=== PATIENT | female | born 1935 | race Caucasian/White ===

== ENCOUNTER 2021-01-26 14:44 | Inpatient (IN) | payer MEDICARE ==
[2021-01-26 15:26] LABS: #Basophils 0.1 thou/uL (0.0-0.2); #Eosinphils 0.1 thou/uL (0.0-0.7); #Lymphocytes 3.3 thou/uL (1.20-3.40); #Monocytes 1.6 thou/uL (0.11-0.59); #Neutrophils 10.3 thou/uL (1.40-6.50); %Basophils 0.6 % (0.0-1.0); %Eosinophils 0.3 % (0.0-10.0); %Lymphocytes 21.6 % (21.0-51.0); %Monocytes 10.4 % (0.0-10.0); %Neutrophils 67.1 % (42.0-75.0); Hemoglobin 13.6 g/dL (12.0-16.0); Mean Corpuscular Hemoglobin 35.3 pg (27.0-31.0); Mean Platelet Volume 9.2 fL (7.4-10.4); Platelet Count 199 thou/uL (130-400); RBC Distribution Width 12.1 % (11.5-14.5); Red Blood Cell (RBC) Count 3.84 mill/uL (4.20-5.40); White Blood Cell (WBC) Count 15.4 thou/uL (4.8-10.8)
[2021-01-26 15:45] LABS: ALT (SGPT) 9 U/L (8-55); AST (SGOT) 12 U/L (5-34); Albumin 3.5 g/dL (3.4-4.8); Alkaline Phosphatase 83 U/L (40-110); Anion Gap 15 mmol/L (10-20); BUN (Urea Nitrogen) 27 mg/dL (9.8-20.1); Bilirubin, Total 1.6 mg/dL (0.2-1.2); Calc. Creatinine Clearance 0 mL/min (70-130); Calcium 10.2 mg/dL (7.8-10.44); Carbon Dioxide 23 mmol/L (23-31); Chloride 101 mmol/L (98-107); Globulin 3.7 g/dL (2.4-3.5); Glucose 214 mg/dL (83-110); Potassium 4.5 mmol/L (3.5-5.1); Protein, Total 7.2 g/dL (5.8-8.1); Sodium 134 mmol/L (136-145)
[2021-01-26] MEDS ORDERED: HumaLOG 300 UNITS/3 ML VIAL SC PRN (17:49)
[2021-01-26] MEDS ORDERED: Dextrose 50% Abboject 50 ML SYRINGE SLOW IVP PRN (17:49)
[2021-01-26] MEDS ORDERED: Bisacodyl 10 MG SUPP PR PRN (17:49)
[2021-01-26] MEDS ORDERED: Guaifenesin DM 100-10/5 ML UDCUP PO PRN (17:49)
[2021-01-26] MEDS ORDERED: Senokot S 8.6-50 MG TAB PO PRN (17:49)
[2021-01-26] MEDS ORDERED: Dextrose 5% in Water 1,000 ML IV PRN (17:49)
[2021-01-26] MEDS ORDERED: Sodium Chloride 0.9% 1,000 ML IV SCH (17:49)
[2021-01-26] MEDS ORDERED: Calcium Carbonate 500 MG ChewTAB PO PRN (17:49)
[2021-01-26] MEDS ORDERED: Ondansetron PF 4 MG/2 ML Vial IVP PRN (17:49)
[2021-01-26] MEDS ORDERED: Acetaminophen 325 MG TAB PO PRN (17:49)
[2021-01-26] MEDS ORDERED: Morphine 4 MG/ML VIAL SLOW IVP PRN (18:05)
[2021-01-26 20:03] VITALS: BMI 27.4
[2021-01-26] MEDS ORDERED: Enoxaparin Sodium 80 MG/0.8 ML SYRINGE SC SCH (20:15)
[2021-01-26] MEDS ORDERED: Ketorolac Tromethamine 30 MG/ML VIAL IVP SCH (20:30)
[2021-01-26] MEDS ORDERED: Transdermal Patch Removal TOP SCH (21:00)
[2021-01-26 21:29] LABS: Troponin I 0.055 ng/mL (< 0.028)
[2021-01-26] MEDS: Gabapentin 100 MG CAP PO SCH (21:46)
[2021-01-26] MEDS: metFORMIN 500 MG TAB PO SCH (21:47)
[2021-01-26] MEDS: Atorvastatin Calcium 20 MG TAB PO SCH (21:47)
[2021-01-26] MEDS: Nitroglycerin 2% Ointment 1 INCH/1 GM Packet TOP SCH (21:48)
[2021-01-27 00:05] LABS: Troponin I 0.063 ng/mL (< 0.028)
[2021-01-27 02:21] LABS: SARS-CoV-2 NAA Rapid Test Not Detected (NotDetected)
[2021-01-27] MEDS: Nitroglycerin 2% Ointment 1 INCH/1 GM Packet TOP SCH ×2 (05:09→13:40)
[2021-01-27 05:44] LABS: #Basophils 0.1 thou/uL (0.0-0.2); #Eosinphils 0.2 thou/uL (0.0-0.7); #Lymphocytes 4.4 thou/uL (1.20-3.40); #Monocytes 1.5 thou/uL (0.11-0.59); #Neutrophils 7.7 thou/uL (1.40-6.50); %Basophils 0.4 % (0.0-1.0); %Eosinophils 1.4 % (0.0-10.0); %Lymphocytes 31.9 % (21.0-51.0); %Monocytes 10.6 % (0.0-10.0); %Neutrophils 55.7 % (42.0-75.0); Mean Corpuscular HGB CONC 33.8 g/dL (32.0-36.0); Mean Corpuscular Hemoglobin 34.1 pg (27.0-31.0); Mean Platelet Volume 9.7 fL (7.4-10.4); Platelet Count 183 thou/uL (130-400); White Blood Cell (WBC) Count 13.9 thou/uL (4.8-10.8)
[2021-01-27 05:58] LABS: ALT (SGPT) 8 U/L (8-55); AST (SGOT) 11 U/L (5-34); Alkaline Phosphatase 71 U/L (40-110); Anion Gap 13 mmol/L (10-20); BUN (Urea Nitrogen) 31 mg/dL (9.8-20.1); Bilirubin, Total 0.8 mg/dL (0.2-1.2); Calc. Creatinine Clearance 39 mL/min (70-130); Calcium 9.2 mg/dL (7.8-10.44); Carbon Dioxide 22 mmol/L (23-31); Cardiac Risk 5.6 (Less than 4.5); Chloride 105 mmol/L (98-107); Cholesterol 150 mg/dl (< 200 Desired); Globulin 3.3 g/dL (2.4-3.5); Glucose 162 mg/dL (83-110); HDL Cholesterol 27 mg/dL (>60 Neg Risk); LDL Cholesterol, Calculated 72 mg/dL; Potassium 3.7 mmol/L (3.5-5.1); Protein, Total 6.3 g/dL (5.8-8.1); Sodium 136 mmol/L (136-145); Triglycerides 255 mg/dL (Less than 150)
[2021-01-27] MEDS ORDERED: Lidocaine 5% Patch TD SCH ×2 (09:00)
[2021-01-27] MEDS ORDERED: Amlodipine 5 MG TAB PO SCH (09:00)
[2021-01-27] MEDS: Enoxaparin Sodium 40 MG/0.4 ML SYRINGE SC SCH (09:49)
[2021-01-27] MEDS: Aspirin Chewable 81 MG TAB PO SCH (09:49)
[2021-01-27] MEDS: Gabapentin 100 MG CAP PO SCH ×2 (09:50→14:54)
[2021-01-27] MEDS: metFORMIN 500 MG TAB PO SCH ×2 (09:50→20:52)
[2021-01-27] MEDS: Carvedilol 6.25 MG TAB PO SCH ×2 (09:50→16:25)
[2021-01-27 20:31] LABS: Bacteria/HPF None Seen HPF (None Seen); Bilirubin Negative (Negative); Blood, Urine Negative (Negative); Clarity Clear (Clear); Glucose, Urine (Dipstick) 200 mg/dL (Negative); Ketone, Urine Negative (Negative); Leukocyte Negative Leu/uL (Negative); Nitrite Negative (Negative); Protein, Urine (Dipstick) 70 mg/dL (Neg-Trace); RBC/HPF 0-3 HPF (0-3); Specific Gravity, Urine 1.024 (1.002-1.036); Squamous Epithelial None Seen HPF (0-3); Urobilinogen Normal mg/dL (Less than 2); WBC/HPF 0-3 HPF (0-3)
[2021-01-27] MEDS: Atorvastatin Calcium 20 MG TAB PO SCH (20:53)
[2021-01-28] MEDS: HumaLOG 300 UNITS/3 ML VIAL SC PRN (06:18)
[2021-01-28] MEDS ORDERED: Losartan 25 MG TAB PO SCH (09:00)
[2021-01-28] MEDS: Carvedilol 6.25 MG TAB PO SCH ×5 (11:44→22:15)
[2021-01-28] MEDS: metFORMIN 500 MG TAB PO SCH ×3 (11:44→22:16)
[2021-01-28] MEDS: Enoxaparin Sodium 40 MG/0.4 ML SYRINGE SC SCH (11:44)
[2021-01-28] MEDS: Aspirin Chewable 81 MG TAB PO SCH (11:44)
[2021-01-28 13:12] LABS: #Monocytes 1.8 thou/uL (0.11-0.59); #Neutrophils 13.1 thou/uL (1.40-6.50); %Basophils 0.2 % (0.0-1.0); %Eosinophils 0.1 % (0.0-10.0); %Lymphocytes 16.7 % (21.0-51.0); %Monocytes 10.1 % (0.0-10.0); %Neutrophils 72.9 % (42.0-75.0); Hemoglobin 12.7 g/dL (12.0-16.0); Mean Corpuscular HGB CONC 33.9 g/dL (32.0-36.0); Mean Platelet Volume 9.6 fL (7.4-10.4); Platelet Count 212 thou/uL (130-400); RBC Distribution Width 12.1 % (11.5-14.5); Red Blood Cell (RBC) Count 3.73 mill/uL (4.20-5.40)
[2021-01-28 13:35] LABS: ALT (SGPT) Less than 7 U/L (8-55); AST (SGOT) 11 U/L (5-34); Albumin 3.2 g/dL (3.4-4.8); Alkaline Phosphatase 72 U/L (40-110); Anion Gap 15 mmol/L (10-20); BUN (Urea Nitrogen) 17 mg/dL (9.8-20.1); Bilirubin, Total 1.8 mg/dL (0.2-1.2); Calc. Creatinine Clearance 50 mL/min (70-130); Calcium 8.8 mg/dL (7.8-10.44); Carbon Dioxide 21 mmol/L (23-31); Chloride 101 mmol/L (98-107); Globulin 3.5 g/dL (2.4-3.5); Glucose 187 mg/dL (83-110); Protein, Total 6.7 g/dL (5.8-8.1); Sodium 133 mmol/L (136-145)
[2021-01-28] MEDS: Sodium Chloride 0.9% 1,000 ML IV SCH (15:31)
[2021-01-28] MEDS: Gabapentin 100 MG CAP PO SCH (22:15)
[2021-01-28] MEDS: Atorvastatin Calcium 20 MG TAB PO SCH (22:15)
[2021-01-29] MEDS: Carvedilol 6.25 MG TAB PO SCH ×2 (12:36→20:11)
[2021-01-29] MEDS: Aspirin Chewable 81 MG TAB PO SCH (12:36)
[2021-01-29] MEDS: metFORMIN 500 MG TAB PO SCH ×2 (12:37→20:12)
[2021-01-29] MEDS: Enoxaparin Sodium 40 MG/0.4 ML SYRINGE SC SCH (12:37)
[2021-01-29] MEDS: Gabapentin 100 MG CAP PO SCH (12:41)
[2021-01-29] MEDS: Sodium Chloride 0.9% 1,000 ML IV SCH (13:52)
[2021-01-29] MEDS ORDERED: Losartan 25 MG TAB PO SCH (14:15)
[2021-01-29] MEDS: Atorvastatin Calcium 20 MG TAB PO SCH (20:12)
[2021-01-30] MEDS: HumaLOG 300 UNITS/3 ML VIAL SC PRN (06:19)
[2021-01-30] MEDS ORDERED: Losartan 25 MG TAB PO SCH (09:00)
[2021-01-30] MEDS: Aspirin Chewable 81 MG TAB PO SCH (09:49)
[2021-01-30] MEDS: Enoxaparin Sodium 40 MG/0.4 ML SYRINGE SC SCH (09:49)
[2021-01-30] MEDS: Carvedilol 6.25 MG TAB PO SCH (09:50)
[2021-01-30] MEDS: metFORMIN 500 MG TAB PO SCH (09:50)
[2021-01-30 10:20] LABS: #Basophils 0.1 thou/uL (0.0-0.2); #Eosinphils 0.1 thou/uL (0.0-0.7); #Lymphocytes 3.1 thou/uL (1.20-3.40); #Monocytes 1.9 thou/uL (0.11-0.59); %Basophils 0.4 % (0.0-1.0); %Eosinophils 0.8 % (0.0-10.0); %Lymphocytes 18.1 % (21.0-51.0); %Monocytes 11.1 % (0.0-10.0); %Neutrophils 69.7 % (42.0-75.0); Mean Corpuscular HGB CONC 33.6 g/dL (32.0-36.0); Mean Corpuscular Hemoglobin 33.9 pg (27.0-31.0); Mean Platelet Volume 9.8 fL (7.4-10.4); Platelet Count 245 thou/uL (130-400); RBC Distribution Width 12.1 % (11.5-14.5); Red Blood Cell (RBC) Count 3.53 mill/uL (4.20-5.40); White Blood Cell (WBC) Count 17.2 thou/uL (4.8-10.8)
[2021-01-30 14:08] LABS: Chloride 104 mmol/L (98-107); Sodium 134 mmol/L (136-145)
[2021-01-30 14:13] LABS: Anion Gap 15 mmol/L (10-20); BUN (Urea Nitrogen) 28 mg/dL (9.8-20.1); Calc. Creatinine Clearance 48 mL/min (70-130); Calcium 9.3 mg/dL (7.8-10.44); Carbon Dioxide 19 mmol/L (23-31); Glucose 169 mg/dL (83-110)
[2021-01-30 14:18] VITALS: BP 158/81; TEMP 98
== END 2021-01-30 15:45 | disposition home health service (06) | DRG 682 ==
LOC: ERS 14:44 → 2SW 17:24 → OBSVTOIN 01-28 11:17
PROVIDERS: ADMIT Internal Medicine; ATTEND Hospitalist
DX: N17.9 Acute kidney failure, unspecified (principal); G93.41 Metabolic encephalopathy; I50.21 Acute systolic (congestive) heart failure; I48.20 Chronic atrial fibrillation, unspecified; I45.2 Bifascicular block; F30.9 Manic episode, unspecified; E46 Unspecified protein-calorie malnutrition; I11.0 Hypertensive heart disease with heart failure; R07.81 Pleurodynia; I25.5 Ischemic cardiomyopathy; Z66 Do not resuscitate; Z20.822 Contact with and (suspected) exposure to COVID-19; I25.10 Atherosclerotic heart disease of native coronary artery without angina pectoris; K52.9 Noninfective gastroenteritis and colitis, unspecified; E11.9 Type 2 diabetes mellitus without complications; Z96.651 Presence of right artificial knee joint; G89.4 Chronic pain syndrome; F02.80 Dementia in other diseases classified elsewhere, unspecified severity, without behavioral disturbance, psychotic disturbance, mood disturbance, and anxiety; G30.9 Alzheimer's disease, unspecified; K21.9 Gastro-esophageal reflux disease without esophagitis; D72.829 Elevated white blood cell count, unspecified; Z90.49 Acquired absence of other specified parts of digestive tract; Z90.710 Acquired absence of both cervix and uterus; Z98.51 Tubal ligation status; Z79.82 Long term (current) use of aspirin; Z79.899 Other long term (current) drug therapy; Z79.84 Long term (current) use of oral hypoglycemic drugs; Z98.890 Other specified postprocedural states; Z88.8 Allergy status to other drugs, medicaments and biological substances; Z91.041 Radiographic dye allergy status; I25.2 Old myocardial infarction; Z88.1 Allergy status to other antibiotic agents; Z68.28 Body mass index [BMI] 28.0-28.9, adult
CPT/HCPCS: 0240U; 36415; 36416; 70450; 70551; 71045; 71250; 80048; 80053; 80061; 81003; 81015; 82607; 82746; 83880; 85025; 87040; 87086; 87635; 93005; 93306; 94760; 96372; 96374; G0378; J1650; J1815; J1885; U0003; U0005